=== PATIENT | female | born 1950 | race Caucasian/White ===

== ENCOUNTER 2019-09-16 05:50 | Observation (INO) | payer MEDICARE ==
[2019-09-15 10:44] VITALS: BMI 27.4
[2019-09-16] MEDS ORDERED: Midazolam HCl 2 mg/2 ml Vial ONE (08:29)
[2019-09-16] MEDS ORDERED: Fentanyl 100 MCG/2 ML VIAL ONE (08:29)
[2019-09-16] MEDS ORDERED: Heparin 10,000 UNITS/1 ML VIAL ONE (08:53)
[2019-09-16] MEDS ORDERED: Nitroglycerin 100MG/250ML BOT 250 ML ONE (08:56)
[2019-09-16] MEDS ORDERED: Iopamidol 370 76% 50 ML VIAL FS ONE (09:23)
[2019-09-16] MEDS ORDERED: Iopamidol 370 76% 100 ML VIAL ONE (09:23)
[2019-09-16] MEDS ORDERED: Sodium Chloride 0.9% 1,000 ML IV SCH (10:31)
[2019-09-16] MEDS ORDERED: cloNIDine 0.1 MG TAB PO PRN (13:01)
[2019-09-16] MEDS ORDERED: cloNIDine 0.1 MG TAB PO SCH (13:15)
[2019-09-16] MEDS: Aspirin 81 mg Enteric Coated Tablet PO SCH (20:07)
[2019-09-16] MEDS: Lisinopril/Hydrochlorothiazide 10 mg/12.5 mg Tablet PO SCH (20:08)
[2019-09-16] MEDS: TICAGRELOR 90 MG TABLET PO SCH (20:08)
[2019-09-16] MEDS ORDERED: TICAGRELOR 90 MG TABLET PO SCH (21:00)
[2019-09-16] MEDS ORDERED: Atorvastatin Calcium 20 MG TAB PO SCH (21:00)
[2019-09-17 04:54] LABS: #Basophils 0.1 thou/uL (0.0-0.2); #Eosinphils 0.2 thou/uL (0.0-0.7); #Lymphocytes 1.9 thou/uL (1.20-3.40); #Monocytes 0.6 thou/uL (0.11-0.59); #Neutrophils 4.2 thou/uL (1.40-6.50); %Basophils 0.8 % (0.0-1.0); %Lymphocytes 27.6 % (21.0-51.0); %Neutrophils 59.6 % (42.0-75.0); Hemoglobin 11.5 g/dL (12.0-16.0); Mean Corpuscular HGB CONC 32.5 g/dL (32.0-36.0); Mean Corpuscular Hemoglobin 28.5 pg (27.0-31.0); Mean Corpuscular Volume 87.8 fL (78.0-98.0); Mean Platelet Volume 7.7 fL (7.4-10.4); Platelet Count 289 thou/uL (130-400); RBC Distribution Width 11.8 % (11.5-14.5); Red Blood Cell (RBC) Count 4.03 mill/uL (4.20-5.40)
[2019-09-17 05:16] LABS: ALT (SGPT) 22 U/L (8-55); AST (SGOT) 18 U/L (5-34); Albumin 3.8 g/dL (3.4-4.8); Alkaline Phosphatase 99 U/L (40-110); Anion Gap 11 mmol/L (10-20); BUN (Urea Nitrogen) 9 mg/dL (9.8-20.1); Bilirubin, Total 0.5 mg/dL (0.2-1.2); Calc. Creatinine Clearance 73 mL/min (70-130); Calcium 9.4 mg/dL (7.8-10.44); Carbon Dioxide 29 mmol/L (23-31); Chloride 97 mmol/L (98-107); Estimated GFR-MDRD 70; Globulin 2.5 g/dL (2.4-3.5); Glucose 151 mg/dL (83-110); Protein, Total 6.3 g/dL (6.0-8.3); Sodium 133 mmol/L (136-145)
[2019-09-17] MEDS: Aspirin 81 mg Enteric Coated Tablet PO SCH (08:31)
[2019-09-17] MEDS: TICAGRELOR 90 MG TABLET PO SCH (08:31)
[2019-09-17] MEDS: Lisinopril/Hydrochlorothiazide 10 mg/12.5 mg Tablet PO SCH (08:31)
[2019-09-17] MEDS ORDERED: Isosorbide Mononitrate (ER) 30 MG TAB PO SCH (09:00)
[2019-09-17 12:03] VITALS: BP 116/58; TEMP 98.2
--- NOTE | 2019-09-17 13:12 | DIS ---
DATE OF ADMISSION: 09/16/2019 DATE OF DISCHARGE: 09/17/2019 PROCEDURES PERFORMED: 1. Left heart catheterization. 2. Percutaneous coronary intervention to the left anterior descending with drug-eluting stent. SUMMARY: Ms. Wade is a pleasant 69-year-old white female, who comes to the catheterization lab for a scheduled heart catheterization for an abnormal stress. She was found to have severe LAD disease and underwent drug-eluting stents. She stayed overnight and did well. No chest pain. No issues with her groin. She is ready to go home. Medications have been discussed with her and modified. Going home in a stable condition with stable vital signs and blood work. 30 minutes spent at bedside for discharge. Job ID: [id number]
[2019-09-17] MEDS ORDERED: Aspirin 81 mg Enteric Coated Tablet PO SCH (13:15)
[2019-09-17] MEDS ORDERED: Atorvastatin Calcium 10 MG TAB PO SCH (21:00)
[2019-09-18] MEDS ORDERED: Clopidogrel Bisulfate 75 MG TAB PO SCH (09:00)
--- NOTE | 2019-10-07 11:53 | EKG ---
Test Reason : S/P STENT Blood Pressure : / mmHG Vent. Rate : 071 BPM Atrial Rate : 071 BPM P-R Int : 138 ms QRS Dur : 080 ms QT Int : 396 ms P-R-T Axes : 079 068 042 degrees QTc Int : 430 ms Normal sinus rhythm Normal ECG Confirmed by DR. Angus ABRAHAM ([id number]) on 10/07/2019 11:52:33 AM Referred By: DUY Confirmed By:DR. Angus ABRAHAM
--- NOTE | 2019-10-07 15:13 | EKG ---
Test Reason : Blood Pressure : / mmHG Vent. Rate : 072 BPM Atrial Rate : 072 BPM P-R Int : 140 ms QRS Dur : 082 ms QT Int : 388 ms P-R-T Axes : 071 067 057 degrees QTc Int : 424 ms Normal sinus rhythm Normal ECG Confirmed by DR. Angus ABRAHAM ([id number]) on 10/07/2019 3:12:54 PM Referred By: DUY Confirmed By:DR. Angus ABRAHAM
== END 2019-09-17 13:15 | disposition home or self-care (01) ==
LOC: CCL 05:50 → 2SW 12:19
PROVIDERS: ADMIT Internal Medicine Cardiovascular Disease; ATTEND Internal Medicine Cardiovascular Disease
PROC: 027034Z Dilation of Coronary Artery, One Artery with Drug-eluting Intraluminal Device, Percutaneous Approach (ICD-10-PCS; principal; 2019-09-16)
PROC: 4A023N7 Measurement of Cardiac Sampling and Pressure, Left Heart, Percutaneous Approach (ICD-10-PCS; 2019-09-16)
PROC: B2111ZZ Fluoroscopy of Multiple Coronary Arteries using Low Osmolar Contrast (ICD-10-PCS; 2019-09-16)
DX: I25.10 Atherosclerotic heart disease of native coronary artery without angina pectoris (principal); E11.9 Type 2 diabetes mellitus without complications; I10 Essential (primary) hypertension; K21.9 Gastro-esophageal reflux disease without esophagitis; E78.00 Pure hypercholesterolemia, unspecified; Z87.891 Personal history of nicotine dependence; Z79.82 Long term (current) use of aspirin; Z79.84 Long term (current) use of oral hypoglycemic drugs; Z79.899 Other long term (current) drug therapy; Z88.0 Allergy status to penicillin; Z88.8 Allergy status to other drugs, medicaments and biological substances
CPT/HCPCS: 36415; 80053; 85025; 85347; 92928; 93005; 93010; 93454; 93798; 99152; 99153; C1760; C1769; C1874; C9600; G0378; J1644; J2250; J3010; Q9967

== ENCOUNTER 2025-05-08 12:46 | Inpatient (IN) | payer OTHER ==
[~2025-05-08 12:46] MED LIST: Iopamidol-370 76% 500 ML MDV (1 ML CHARGE) ONE
[2025-05-08 13:45] LABS: #Basophils 0.04 10x3/uL (0.0-0.2); #Eosinophils 0.17 10x3/uL (0.0-0.7); #Monocytes 0.60 10x3/uL (0.11-0.59); #Neutrophils 6.06 10x3/uL (1.40-6.50); %Basophils 0.4 % (0.0-1.0); %Eosinophils 1.8 % (0.0-10.0); %Lymphocytes 26.8 % (21.0-51.0); %Monocytes 6.4 % (0.0-10.0); %Neutrophils 64.2 % (42.0-75.0); Hematocrit 38.1 % (36.0-47.0); Hemoglobin 11.9 g/dL (12.0-16.0); Mean Corpuscular Hemoglobin 27.2 pg (27.0-31.0); Mean Corpuscular Volume 87.0 fL (78.0-98.0); Platelet Count 393 10x3/uL (130-400); Red Blood Cell (RBC) Count 4.38 mill/uL (4.20-5.40); White Blood Cell (WBC) Count 9.44 10x3/uL (4.8-10.8)
[2025-05-08 14:00] LABS: INR-International Normal Ratio 1.1; PTT 35.0 sec (22.9-36.1); Prothrombin Time 14.3 sec (12.0-14.7)
[2025-05-08] MEDS ORDERED: Aspirin Chewable 81 MG TAB ONE (14:00)
[2025-05-08 14:07] LABS: ALT (SGPT) 10 U/L (Less than 34); AST (SGOT) 15 U/L (11-34); Albumin 4.1 g/dL (3.1-4.5); Alkaline Phosphatase 88 U/L (40-110); Anion Gap 18 mmol/L (10-20); BUN (Urea Nitrogen) 11 mg/dL (9.8-20.1); Bilirubin, Total 0.3 mg/dL (0.3-1.2); Calc. Creatinine Clearance 0 mL/min (70-130); Calcium 8.7 mg/dL (7.8-10.44); Carbon Dioxide 15 mmol/L (23-31); Chloride 109 mmol/L (98-107); Globulin 3.4 g/dL (2.4-3.5); Glucose 215 mg/dL (83-110); Potassium 3.4 mmol/L (3.5-5.1); Sodium 139 mmol/L (136-145)
[2025-05-08] MEDS ORDERED: Acetaminophen 325 MG TAB PO PRN (15:22)
[2025-05-08] MEDS ORDERED: Acetaminophen/Codeine 30-300mg Tablet PO PRN (15:22)
[2025-05-08] MEDS ORDERED: Guaifenesin DM 100-10/5 ML UDCUP PO PRN (15:22)
[2025-05-08] MEDS ORDERED: Senokot S 8.6-50 MG TAB PO PRN (15:22)
[2025-05-08] MEDS ORDERED: hydrALAZINE 20 MG/ML VIAL SLOW IVP PRN (15:22)
[2025-05-08] MEDS ORDERED: Dextrose 50% Abboject 50 ML SYRINGE SLOW IVP PRN (15:31)
[2025-05-08] MEDS ORDERED: Glucagon 1 MG/ML KIT IM PRN (15:31)
[2025-05-08 17:11] VITALS: BMI 30.5
[2025-05-08] MEDS: Metoprolol Succinate XL 25 MG ER.TAB PO SCH ×2 (17:52)
[2025-05-08] MEDS: Rosuvastatin 10 MG TAB PO SCH (20:24)
[2025-05-09 04:26] LABS: #Basophils Less than 0.03 10x3/uL (0.0-0.2); #Eosinophils 0.12 10x3/uL (0.0-0.7); #Monocytes 0.48 10x3/uL (0.11-0.59); #Neutrophils 3.64 10x3/uL (1.40-6.50); %Basophils 0.3 % (0.0-1.0); %Eosinophils 2.1 % (0.0-10.0); %Lymphocytes 25.8 % (21.0-51.0); %Monocytes 8.3 % (0.0-10.0); %Neutrophils 63.2 % (42.0-75.0); Hematocrit 33.6 % (36.0-47.0); Hemoglobin 10.4 g/dL (12.0-16.0); Mean Corpuscular Hemoglobin 27.0 pg (27.0-31.0); Mean Corpuscular Volume 87.3 fL (78.0-98.0); Platelet Count 300 10x3/uL (130-400); Red Blood Cell (RBC) Count 3.85 mill/uL (4.20-5.40); White Blood Cell (WBC) Count 5.77 10x3/uL (4.8-10.8)
[2025-05-09 04:46] LABS: ALT (SGPT) 8 U/L (Less than 34); AST (SGOT) 12 U/L (11-34); Albumin 3.5 g/dL (3.1-4.5); Alkaline Phosphatase 73 U/L (40-110); Anion Gap 15 mmol/L (10-20); BUN (Urea Nitrogen) 10 mg/dL (9.8-20.1); Bilirubin, Total 0.3 mg/dL (0.3-1.2); Calc. Creatinine Clearance 74 mL/min (70-130); Calcium 8.3 mg/dL (7.8-10.44); Carbon Dioxide 18 mmol/L (23-31); Cardiac Risk 2.7 (Less than 4.5); Chloride 112 mmol/L (98-107); Cholesterol 92 mg/dl (< 200 Desired); Globulin 2.7 g/dL (2.4-3.5); Glucose 200 mg/dL (83-110); HDL Cholesterol 34 mg/dL (>60 Neg Risk); LDL Cholesterol, Calculated 31 mg/dL; Potassium 3.3 mmol/L (3.5-5.1); Sodium 142 mmol/L (136-145); Triglycerides 135 mg/dL (Less than 150)
[2025-05-09] MEDS: hydrALAZINE 20 MG/ML VIAL SLOW IVP PRN (05:30)
[2025-05-09] MEDS ORDERED: Aspirin 81 mg Enteric Coated Tablet PO SCH (09:00)
[2025-05-09] MEDS: Rosuvastatin 10 MG TAB PO SCH (09:45)
[2025-05-09] MEDS: Aspirin 81 mg Enteric Coated Tablet PO SCH (09:45)
[2025-05-09] MEDS: Metoprolol Succinate XL 25 MG ER.TAB PO SCH ×2 (09:46→13:02)
[2025-05-09] MEDS: Pantoprazole 40 MG DR.TAB PO SCH (09:46)
[2025-05-09] MEDS: Lisinopril 10 MG TAB PO SCH (09:46)
[2025-05-09] MEDS ORDERED: Magnesium 2 GM/50 ML(in water) 2 GM in Premix 1 BAG IVPB PRN (12:00)
[2025-05-09] MEDS ORDERED: PHOS-NAK 1 PKT PACK PO PRN (12:00)
[2025-05-09] MEDS ORDERED: Potassium Chloride 20 MEQ in Premix 1 BAG IVPB PRN (12:00)
[2025-05-09 19:12] LABS: Potassium 3.9 mmol/L (3.5-5.1)
[2025-05-09] MEDS: Melatonin 3 MG TAB PO PRN (21:07)
[2025-05-09] MEDS ORDERED: hydrALAZINE 20 MG/ML VIAL SLOW IVP SCH (23:45)
[2025-05-09] MEDS: hydrALAZINE 20 MG/ML VIAL SLOW IVP SCH (23:50)
[2025-05-10 04:54] LABS: Anion Gap 23 mmol/L (10-20); BUN (Urea Nitrogen) 13 mg/dL (9.8-20.1); Calc. Creatinine Clearance 63 mL/min (70-130); Calcium 8.9 mg/dL (7.8-10.44); Carbon Dioxide 13 mmol/L (23-31); Chloride 108 mmol/L (98-107); Glucose 295 mg/dL (83-110); Potassium 3.8 mmol/L (3.5-5.1); Sodium 140 mmol/L (136-145)
[2025-05-10] MEDS: glipiZIDE XL 5 mg ER.TAB PO SCH (09:52)
[2025-05-10] MEDS: Pantoprazole 40 MG DR.TAB PO SCH (09:52)
[2025-05-10] MEDS: Metoprolol Succinate XL 50 MG ER.TAB PO SCH (10:13)
[2025-05-10] MEDS: Lisinopril 10 MG TAB PO SCH ×2 (14:03→23:57)
[2025-05-10] MEDS: metFORMIN 500 MG TAB PO SCH (14:48)
[2025-05-10] MEDS: Sodium Bicarbonate Tab 325 MG TAB PO SCH (14:48)
[2025-05-10 19:09] LABS: Anion Gap 18 mmol/L (10-20); BUN (Urea Nitrogen) 18 mg/dL (9.8-20.1); Calc. Creatinine Clearance 55 mL/min (70-130); Calcium 8.8 mg/dL (7.8-10.44); Carbon Dioxide 15 mmol/L (23-31); Chloride 109 mmol/L (98-107); Glucose 212 mg/dL (83-110); Potassium 3.9 mmol/L (3.5-5.1); Sodium 138 mmol/L (136-145)
[2025-05-10] MEDS ORDERED: metFORMIN 500 MG TAB PO SCH (21:00)
[2025-05-11 05:40] LABS: Anion Gap 14 mmol/L (10-20); BUN (Urea Nitrogen) 17 mg/dL (9.8-20.1); Calc. Creatinine Clearance 56 mL/min (70-130); Calcium 8.3 mg/dL (7.8-10.44); Carbon Dioxide 18 mmol/L (23-31); Chloride 111 mmol/L (98-107); Glucose 262 mg/dL (83-110); Potassium 3.6 mmol/L (3.5-5.1); Sodium 139 mmol/L (136-145)
[2025-05-11] MEDS: metFORMIN 500 MG TAB PO SCH (09:37)
[2025-05-11] MEDS: Enoxaparin 40 MG (0.4 mL) SYRINGE SC SCH (09:38)
[2025-05-11] MEDS: Lisinopril 20 MG TAB PO SCH (09:39)
[2025-05-11] MEDS ORDERED: hydrALAZINE 20 MG/ML VIAL SLOW IVP PRN (11:49)
[2025-05-11] MEDS: Carvedilol 6.25 MG TAB PO SCH (18:08)
[2025-05-11] MEDS: Losartan 25 MG TAB PO SCH (20:16)
[2025-05-12 11:37] VITALS: BP 144/84; TEMP 97.8
== END 2025-05-12 14:30 | disposition home or self-care (01) | DRG 304 ==
LOC: ERS 12:46 → OBSVTOIN 15:20 → 2SE 15:20 → INTOOBSV 15:20 → OBSVTOIN 05-09 19:18 → SURG A 05-10 23:19
PROVIDERS: ADMIT Internal Medicine; ATTEND Student in an Organized Health Care Education/Training Program
DX: I16.0 Hypertensive urgency (principal); E11.10 Type 2 diabetes mellitus with ketoacidosis without coma; I47.10 Supraventricular tachycardia, unspecified; I25.10 Atherosclerotic heart disease of native coronary artery without angina pectoris; I10 Essential (primary) hypertension; E78.5 Hyperlipidemia, unspecified; E11.9 Type 2 diabetes mellitus without complications; Z79.899 Other long term (current) drug therapy; R20.2 Paresthesia of skin; Z95.5 Presence of coronary angioplasty implant and graft
CPT/HCPCS: 36415; 36416; 70450; 70496; 70498; 71045; 80048; 80053; 80061; 82010; 83036; 83605; 84443; 84484; 85025; 85610; 85730; 93005; 93306; 94760; 96374; J0360; J1650; J1815; J7030; Q9967